=== PATIENT | female | born 1955 | race Caucasian/White ===

== ENCOUNTER 2020-12-25 19:58 | Emergency (ER) | payer OTHER ==
[2020-12-25 20:44] LABS: HEMOGLOBIN 13.2 gm/dl (12.3-15.3); RED BLOOD COUNT 4.76 M/UL (4.00-5.10); WHITE BLOOD COUNT 9.6 K/UL (4.5-11.0)
[2020-12-25] MEDS ORDERED: LOPRESSOR 50 MG50 MG PO (23:31)
== END 2020-12-25 23:55 | disposition home or self-care (01) ==
LOC: ER1 19:58
PROVIDERS: Physician Assistant Medical
DX: K80.20 Calculus of gallbladder without cholecystitis without obstruction (principal); I10 Essential (primary) hypertension; Z20.822 Contact with and (suspected) exposure to COVID-19; Z87.442 Personal history of urinary calculi; Z90.710 Acquired absence of both cervix and uterus
CPT/HCPCS: 0240U; 71045; 80053; 81001; 82150; 83605; 83690; 84484; 85025; 87086; 93005; 99285; Q9967